=== PATIENT | female | born 1945 | race Caucasian/White ===

== ENCOUNTER → 2017-05-13 | Outpatient (CLI) | payer BC ==
--- NOTE | ~2017-05-13 | MY29 ---
[facility] A Service of [facility] RADIOLOGY TEXT RESULTS PATIENT: EREN JARRELL LOCATION: [facility] : 41 UNIT #: [id number] AGE: [address]: NIKA TEJADA MD SEX: F ORDER DR: [id number] [facility] [address] [place], [place] [address] [id number] O MR#: [id number] Acc #: [id number] NAME: EREN JARRELL : 1945 SEX: F STUDY DATE/TIME: 05/13/2017 13:50 UNIT: [facility] ROOM: STUDY DESCRIPTION: MY CARROLL SCREENING W/ CAD BILAT Attending Physician: Nkia Tejada M.D. Ordering Physician: Nika Tejada M.D. Primary Care Physician: Nika Tejada M.D. MEDICAL IMAGING REPORT This report is preliminary unless electronic signature is present EXAM Digital screening mammogram 05/13/2017 HISTORY 71-year-old woman, no risk elevation. Annual screening. COMPARISON STUDIES 05/01/2011 and 06/17/2012. FINDINGS Digital imaging of each breast was completed utilizing screening protocol. Review includes FDA-approved CAD device. Breast parenchyma is fatty replaced. Several benign calcifications in the right breast are noted. There is no interval occurring mass. There are no suspicious microcalcifications and no architectural deformity. IMPRESSION Negative mammogram. Annual screening recommended. BIRADS: 1 Negative. Patients over the age of 40 are entered into a reminder system with target due date for the next mammogram. A result letter will also be sent to the patient. Dictated by... Junior Elliott M.D. THIS IS AN ELECTRONICALLY VERIFIED REPORT Junior Elliott M.D. at 05/14/2017 8:10 AM JBB/eyad [facility] A Service of [facility] RADIOLOGY TEXT RESULTS PATIENT: EREN JARRELL LOCATION: [facility] : 41 UNIT #: [id number] AGE: [address]: NIKA TEJADA MD SEX: F ORDER DR: TD: 05/13/2017 18:41 JOB #: [id number] MEDICAL IMAGING REPORT Page 1 of 1 COPY
== END | disposition home or self-care (01) ==
LOC: CWCC 13:37
DX: Z12.31 Encounter for screening mammogram for malignant neoplasm of breast (principal)
CPT/HCPCS: G0202